=== PATIENT | female | born 1970 | race American Indian/Alaskan Native ===

== ENCOUNTER 2016-05-06 09:23 | Outpatient (CLI) | payer OTHER ==
--- NOTE | 2016-05-07 07:29 | Ultrasound Report ---
ULTRASOUND ABDOMEN COMPLETE: Technique: Transabdominal ultrasound with color Doppler interrogation. History: Change in bowel habits. Findings: The liver is normal size, contour and echotexture. The gallbladder dimensions are within normal limits without intraluminal stone, wall thickening, or pericholecystic fluid. The CBD is normal caliber. The visualized portions of the pancreas including the head and proximal body are within normal limits. The kidneys demonstrate no hydronephrosis or mass. Cortical thickness and echogenicity are within normal limits bilaterally. The spleen and aorta are within normal limits. No aneurysmal dilatation is noted. No ascites. The bladder is unremarkable. IMPRESSION: Unremarkable abdominal ultrasound.
== END 2016-05-06 09:24 | disposition home or self-care (01) ==
LOC: US 09:23
PROVIDERS: ATTEND Internal Medicine Gastroenterology
DX: K21.9 Gastro-esophageal reflux disease without esophagitis (principal); K30 Functional dyspepsia; R14.0 Abdominal distension (gaseous); R19.4 Change in bowel habit
CPT/HCPCS: 76700

== ENCOUNTER 2016-07-22 14:42 | Outpatient (CLI) | payer OTHER | END 2016-07-22 14:43 | disposition home or self-care (01) | LOC: LABHHL 14:42 | PROVIDERS: ATTEND Internal Medicine Gastroenterology | DX: R10.13 Epigastric pain (principal) | CPT/HCPCS: 88305; 88342 ==

== ENCOUNTER 2017-01-06 14:32 | Outpatient (CLI) | payer OTHER ==
--- NOTE | 2017-01-07 08:27 | Mammography Report ---
BILATERAL DIGITAL SCREENING MAMMOGRAM with CAD: 01/06/17 14:32:00 CLINICAL: Routine screening. COMPARISON:03/28/15 and additional mammograms from [facility] FINDINGS: The breasts are heterogeneously dense, which may obscure small masses. Bilateral scattered amorphous calcifications with benign morphology. A partially circumscribed right asymmetry on the CC view requires additional imaging. No architectural distortion or suspicious calcifications. The left breast is negative. IMPRESSION: Right asymmetry requiring additional imaging. BI-RADS CATEGORY: 0- -Needs Additional Imaging RECOMMENDATION: Recall for right spot compression views and right breast ultrasound if needed. COMMENT: Patient follow-up letters are generated by our [employer] application.
== END 2017-01-06 14:33 | disposition home or self-care (01) ==
LOC: SPVWC 14:32
PROVIDERS: ATTEND Family Medicine
DX: Z12.31 Encounter for screening mammogram for malignant neoplasm of breast (principal)
CPT/HCPCS: 77067; G0202

== ENCOUNTER 2017-01-23 13:07 | Outpatient (CLI) | payer OTHER ==
--- NOTE | 2017-01-23 14:26 | Mammography Report ---
RIGHT DIGITAL DIAGNOSTIC MAMMOGRAM N. RIGHT BREAST ULTRASOUND: 01/23/17 13:07:00 CLINICAL: Recalled for asymmetries. COMPARISON:01/06/17 screening FINDINGS: MLO and CC spot compression views were performed. An asymmetry persists on the MLO spot view. Ultrasound of the right breast (including all four quadrants and the retroareolar area) was performed and demonstrated numerous benign cysts. No solid mass or shadowing. An oval complex cyst at 9 o'clock 5 cm from the nipple measures 1.0 x 0.3 x 0.7 cm and corresponds to the mammographic asymmetry. The largest cyst at 11 o'clock 5 cm from the nipple and it measures 2.6 x 1.1 x 1.8 cm. A benign cyst at 9 o'clock 8 cm from the nipple measures 6 x 3 x 6 mm. A cyst at 6 o'clock near the areola measures 7 x 4 x 7 mm. No solid mass or shadowing. IMPRESSION: Benign cysts and no suspicious finding. BI-RADS CATEGORY: 2 - - Benign RECOMMENDATION: Routine mammographic screening in one year. ACR BI-RADS MAMMOGRAPHIC CODES: 0 = Needs additional imaging evaluation; 1 = Negative; 2 = Benign; 3 = Probably benign; 4 = Suspicious; 5 = Malignant; 6 = Known biopsy-proven malignancy COMMENT: 1. Dense breast tissue, i.e., adenosis, fibrocystic changes, etc., may obscure an underlying neoplasm. 2. Approximately 10% of cancers are not detected with mammography. 3. A negative mammography report should not delay biopsy if a clinically suspicious mass is present. COMMENT: Patient follow-up letters are generated via our [employer] application.
== END 2017-01-23 13:08 | disposition home or self-care (01) ==
LOC: SPVWC 13:07
PROVIDERS: ATTEND Family Medicine
DX: N60.01 Solitary cyst of right breast (principal)
CPT/HCPCS: 76641; G0206

== ENCOUNTER 2018-07-07 08:11 | Outpatient (CLI) | payer OTHER ==
--- NOTE | 2018-07-08 08:39 | Ultrasound Report ---
BILATERAL DIGITAL DIAGNOSTIC MAMMOGRAM with CAD and BILATERAL BREAST ULTRASOUND: 07/07/18 CLINICAL: Bilateral breast lumps. The patient pointed to a palpable lump in the upper outer right breast but did not indicate a lump in the left breast. COMPARISON:01/06/17 FINDINGS: The breasts are heterogeneously dense, which may obscure small masses.No mass, architectural distortion or suspicious calcifications. Scattered bilateral benign calcifications.No mammographic finding at a right upper outer palpable marker. Ultrasound of the upper outer right breast was performed and demonstrated a palpable benign cyst at 12 o'clock 5 cm from the nipple measuring 2.3 x 1.6 x 2.2 cm. It correlates with the palpable lump. Additional benign cysts at 12:30 o'clock and 11 o'clock measure 9 mm. No solid mass or shadowing. Ultrasound of the upper-outer left breast was performed and demonstrated benign cysts at 1 o'clock 2 cm from the nipple measuring 5 mm, at 2 o'clock 4 cm from the nipple measuring 9 mm, retroareolar at 2 o'clock measuring 7 mm and at 3 o'clock 6 cm from the nipple measuring 7 mm. No solid mass or shadowing. IMPRESSION: Bilateral benign cysts. BI-RADS CATEGORY: 2 -- Benign RECOMMENDATION: Clinical followup and routine mammographic screening in one year. ACR BI-RADS MAMMOGRAPHIC CODES: 0 = Needs additional imaging evaluation; 1 = Negative; 2 = Benign; 3 = Probably benign; 4 = Suspicious; 5 = Malignant; 6 = Known biopsy-proven malignancy COMMENT: 1. Dense breast tissue, i.e., adenosis, fibrocystic changes, etc., may obscure an underlying neoplasm. 2. Approximately 10% of cancers are not detected with mammography. 3. A negative mammography report should not delay biopsy if a clinically suspicious mass is present. COMMENT: Patient follow-up letters are generated by our [employer] application.
== END 2018-07-07 08:12 | disposition home or self-care (01) ==
LOC: MAMMO 08:11
PROVIDERS: ATTEND Family Medicine
DX: N60.02 Solitary cyst of left breast (principal); N60.01 Solitary cyst of right breast
CPT/HCPCS: 77066

== ENCOUNTER 2018-07-30 08:21 | Outpatient (CLI) | payer OTHER | END 2018-07-30 08:22 | disposition home or self-care (01) | LOC: LABHHL 08:21 | PROVIDERS: ATTEND Surgery | DX: N60.01 Solitary cyst of right breast (principal) | CPT/HCPCS: 88112 ==

== ENCOUNTER 2019-09-21 09:41 | Outpatient (CLI) | payer OTHER ==
--- NOTE | 2019-09-21 14:50 | Mammography Report ---
DIGITAL SCREENING MAMMOGRAM WITH TOMOSYNTHESIS WITH CAD, 09/21/2019 INDICATION: Routine Screening Mammography. TECHNIQUE: Digital bilateral 2D and 3D mammography with tomosynthesis was obtained in the craniocau nahid and mediolateral oblique projections. Computer-Aided Detection (CAD) analysis was used for inter pretation of this study. COMPARISON: 07/07/2018, 01/06/2017, 03/28/2015 FINDINGS: Breast Density: The breasts are extremely dense, which lowers the sensitivity of mammography. There is no evidence of dominant mass, suspicious calcifications or architectural distortion in eithe r breast. Scattered bilateral breast calcifications are again noted and appear unchanged. IMPRESSION: Follow up recommendation: Routine yearly BI-RADS Category 2: Benign. A "normal" or negative report should not discourage follow up or biopsy of a clinically significant f inding. A written summary of these findings will be mailed to the patient. The patient will be entered into a mammography reporting system which will generate a reminder letter for the patient's next appointmen t at the appropriate interval. The [employer] recommends yearly mammograms starting at age 40 and continuing as l vanessa as a woman is in good health. Breast MRI is recommended for women with an approximate 20-25% or greater lifetime risk of breast cancer, including women with a strong family history of breast or ova leslie cancer or who have been treated for Hodgkin's disease. Signer Name: Olivia Garcia MD Signed: 09/21/2019 2:46 PM Workstation Name: [id number]
== END 2019-09-21 09:42 | disposition home or self-care (01) ==
LOC: SPVWC 09:41
PROVIDERS: ATTEND Surgery
DX: Z12.31 Encounter for screening mammogram for malignant neoplasm of breast (principal)
CPT/HCPCS: 77067

== ENCOUNTER 2021-03-13 09:07 | Outpatient (CLI) | payer OTHER ==
--- NOTE | 2021-03-13 11:23 | Ultrasound Report ---
BILATERAL DIGITAL DIAGNOSTIC MAMMOGRAM WITH CAD , 03/13/2021 BILATERAL COMPLETE BREAST ULTRASOUND CLINICAL INFORMATION / INDICATION: Bilateral generalized breast pain TECHNIQUE: Digital mammographic imaging was performed. Complete ultrasound of all four (4) quadrants was performed. This examination was interpreted with the benefit of Computer-Aided Detection (CAD) an alysis. COMPARISON: Prior mammograms including 09/21/2019 and 07/07/2018 FINDINGS: Breast Density: The breasts are heterogeneously dense, which may obscure small masses. MAMMOGRAPHIC FINDINGS: No dominant mass, suspicious calcifications, or architectural distortion in ei ther breast. Overall, the appearance of the mammogram is unchanged. ULTRASOUND FINDINGS: Complete sonographic evaluation of all 4 quadrants and retroareolar region was p erformed. Right breast: Sonographic evaluation of the entire right breast so small scattered simple and mildly complicated cysts throughout the breast parenchyma. No solid mass or worrisome finding is noted. Left breast: Sonographic evaluation of the left breast shows scattered small cysts throughout the laureen ast. Additionally there is a solid oval mass in the 12:00 position, 2 cm from nipple measuring 8 mm. This is been noted on prior studies and actually has shown interval decrease in size since the 2018, and is most consistent with fibroadenoma.. No suspicious findings identified in the left breast . IMPRESSION: No mammographic or sonographic evidence of malignancy. Bilateral fibrocystic change. Clin ical correlation recommended for bilateral breast pain. Follow up recommendation: Routine yearly A "normal" or negative report should not discourage follow up or biopsy of a clinically significant f inding. A written summary of these findings will be mailed to the patient. The patient will be entered into a mammography reporting system which will generate a reminder letter for the patient's next appointmen t at the appropriate interval. According to the [employer], yearly mammograms are recommended starting at age 40 and continuing as long as a woman is in good health. Breast MRI is recommended for women with an fei roximately 20-25% or greater lifetime risk of breast cancer, including women with a strong family his tory of breast or ovarian cancer and women who have been treated for Hodgkin's disease. Signer Name: Leta Morocho MD Signed: 03/13/2021 11:18 AM Workstation Name: [id number]
== END 2021-03-13 09:08 | disposition home or self-care (01) ==
LOC: SPVWC 09:07
PROVIDERS: ATTEND Family Medicine
DX: N60.01 Solitary cyst of right breast (principal); N60.02 Solitary cyst of left breast; N63.22 Unspecified lump in the left breast, upper inner quadrant
CPT/HCPCS: 77066